=== PATIENT | male | born 1990 | race American Indian/Alaskan Native ===

== ENCOUNTER 2018-08-29 16:14 | Emergency (ER) | payer SELFPAY ==
--- NOTE | 2018-08-29 16:29 | ER ---
Nurse's Notes [facility] Name: Al Haq Age: 27 yrs Sex: Male : 1990 Arrival Date: 08/29/2018 Time: 16:17 Bed 24 Private MD: None, None Diagnosis: Irritant contact dermatitis due to detergents Presentation: 08/29 16:19 Presenting complaint: Patient states: "2 days ago I started having an allergic aj1 reaction, I've been treating it with Benadryl and hydrocortizone cream but its still spreading its on my hands, my arms, my chest. stomach area and all over my legs" Respirations are even and unlabored, denies shortness of breath. Transition of care: patient was not received from another setting of care. Onset: The symptoms/episode began/occurred 2 day(s) ago. Anaphylaxis evaluation, no signs or symptoms of anaphylaxis were noted. Onset of symptoms was August 27, 2018. Risk Assessment: Do you want to hurt yourself or someone else? Patient reports no desire to harm self or others. Initial Sepsis Screen: Does the patient meet any 2 criteria? No. Patient's initial sepsis screen is negative. Does the patient have a suspected source of infection? No. Patient's initial sepsis screen is negative. Care prior to arrival: None. 16:19 Method Of Arrival: Ambulatory aj 16:19 Acuity: AY 4 aj1 Triage Assessment: 16:21 General: Appears in no apparent distress. comfortable, Behavior is calm, cooperative, aj1 appropriate for age. Pain: Denies pain. Neuro: Level of Consciousness is awake, alert, obeys commands. Cardiovascular: Patient's skin is warm and dry. Respiratory: Airway is patent Respiratory effort is even, unlabored, Respiratory pattern is regular, symmetrical. Historical: - Allergies: 16:21 "metals"; aj1 - Home Meds: 16:21 None [Active]; aj1 - PMHx: 16:21 ADD/ADHD; ptsd; COPD; aj1 - PSHx: 16:21 None; aj1 - Immunization history:: Flu vaccine is not up to date. - Social history:: Smoking status: Patient uses tobacco products, smokes one pack cigarettes per day. - Ebola Screening: : Patient denies travel to an Ebola-affected area in the 21 days before illness onset. Screenin:42 Abuse screen: Denies threats or abuse. Denies injuries from another. Nutritional mg2 screening: No deficits noted. Tuberculosis screening: No symptoms or risk factors identified. Fall Risk None identified. Assessment: 16:40 General: Appears in no apparent distress. comfortable, Behavior is calm, cooperative. mg2 Pain: Denies pain. Neuro: Level of Consciousness is awake, alert, obeys commands, Oriented to person, place, time, situation. Cardiovascular: Capillary refill < 3 seconds Patient's skin is warm and dry. Respiratory: Airway is patent Respiratory effort is even, unlabored, Respiratory pattern is regular, symmetrical, Breath sounds are clear bilaterally. in right upper lobe, left upper lobe, right middle lobe, left lower lobe and right lower lobe. GI: No signs and/or symptoms were reported involving the gastrointestinal system. : No signs and/or symptoms were reported regarding the genitourinary system. EENT: No signs and/or symptoms were reported regarding the EENT system. Derm: Rash noted that is itchy, red, urticaria, on chest, abdomen, right arm and left arm. Musculoskeletal: Circulation, motion, and sensation intact. Capillary refill < 3 seconds. Vital Signs: 16:21 BP 139 / 86; Pulse 71; Resp 18; Temp 98.2; Pulse Ox 99% on R/A; Weight 98.43 kg (R); aj1 Height 5 ft. 11 in. (180.34 cm) (R); Pain 0/10; 16:21 Body Mass Index 30.27 (98.43 kg, 180.34 cm) aj1 ED Course: 16:17 Patient arrived in ED. ag5 16:17 None, None is Private Physician. ag5 16:21 Triage completed. aj1 16:21 Arm band placed on Patient placed in an exam room. aj1 16:22 Brit[facility] FNP-C [facility]. kb 16:22 Rhett Pedro MD is Attending Physician. kb 16:28 Marko Lorenzana, RAEGAN is Primary Nurse. mg2 16:42 No provider procedures requiring assistance completed. Patient did not have IV access mg2 during this emergency room visit. 16:43 Patient has correct armband on for positive identification. mg2 Administered Medications: 16:40 Drug: predniSONE 40 mg Route: PO; mg2 16:40 Follow up: Response: No adverse reaction; Medication administered at discharge. mg2 16:40 Drug: Pepcid 20 mg Route: PO; mg2 16:40 Follow up: Response: No adverse reaction; Medication administered at discharge. mg2 Outcome: 16:29 Discharge ordered by . elton 16:43 Discharged to home ambulatory, with family. mg2 16:43 Condition: stable 16:43 Discharge instructions given to patient, family, Instructed on discharge instructions, follow up and referral plans. medication usage, Demonstrated understanding of instructions, follow-up care, medications, Prescriptions given X 2. 16:44 Patient left the ED. mg2 Signatures: Britney Peña, RAILROAD SIGNAL TECHNICIAN-C RAILROAD SIGNAL TECHNICIAN-CkJenniffer Pierre RN RN aj1 Marko Lorenzana RN RN mg2 Nitin Fan5
--- NOTE | 2018-08-29 16:30 | EDPHYS ---
Physician Documentation [facility] Name: Al Haq Age: 27 yrs Sex: Male : 1990 Arrival Date: 08/29/2018 Time: 16:17 Bed 24 Private MD: None, None ED Physician Rhett Pedro HPI: 08/29 16:26 This 27 yrs old Male presents to ER via Ambulatory with complaints of Allergic Reaction.kb 16:26 The patient presents with itching, rash. Onset: The symptoms/episode began/occurred 2 kb week(s) ago. Associated signs and symptoms: Pertinent positives: rash. Possible causes: new laundry detergent . At home the patient or guardian has treated the symptoms with Benadryl. Severity of symptoms: At their worst the symptoms were moderate in the emergency department the symptoms are unchanged. The patient has not experienced similar symptoms in the past. The patient has not recently seen a physician. Pt reports he used a new laundry detergent and broke out into a rash. Has been taking benadryl with no relief. . Historical: - Allergies: 16:21 "metals"; aj1 - Home Meds: 16:21 None [Active]; aj1 - PMHx: 16:21 ADD/ADHD; ptsd; COPD; aj1 - PSHx: 16:21 None; aj1 - Immunization history:: Flu vaccine is not up to date. - Social history:: Smoking status: Patient uses tobacco products, smokes one pack cigarettes per day. - Ebola Screening: : Patient denies travel to an Ebola-affected area in the 21 days before illness onset. ROS: 16:26 Constitutional: Negative for fever, chills, and weight loss, Cardiovascular: Negative kb for chest pain, palpitations, and edema, Respiratory: Negative for shortness of breath, cough, wheezing, and pleuritic chest pain, Abdomen/GI: Negative for abdominal pain, nausea, vomiting, diarrhea, and constipation, MS/Extremity: Negative for injury and deformity, Neuro: Negative for headache, weakness, numbness, tingling, and seizure. 16:26 Skin: Positive for rash, diffusely. Exam: 16:26 Constitutional: This is a well developed, well nourished patient who is awake, alert, kb and in no acute distress. Head/Face: Normocephalic, atraumatic. Chest/axilla: Normal chest wall appearance and motion. Nontender with no deformity. No lesions are appreciated. Cardiovascular: Regular rate and rhythm with a normal S1 and S2. No gallops, murmurs, or rubs. Normal PMI, no JVD. No pulse deficits. Respiratory: Lungs have equal breath sounds bilaterally, clear to auscultation and percussion. No rales, rhonchi or wheezes noted. No increased work of breathing, no retractions or nasal flaring. Abdomen/GI: Soft, non-tender, with normal bowel sounds. No distension or tympany. No guarding or rebound. No evidence of tenderness throughout. MS/ Extremity: Pulses equal, no cyanosis. Neurovascular intact. Full, normal range of motion. Neuro: Awake and alert, GCS 15, oriented to person, place, time, and situation. Cranial nerves II-XII grossly intact. Motor strength 5/5 in all extremities. Sensory grossly intact. Cerebellar exam normal. Normal gait. 16:26 Skin: consistent with contact dermatitis, and is diffusely located. Vital Signs: 16:21 BP 139 / 86; Pulse 71; Resp 18; Temp 98.2; Pulse Ox 99% on R/A; Weight 98.43 kg (R); aj1 Height 5 ft. 11 in. (180.34 cm) (R); Pain 0/10; 16:21 Body Mass Index 30.27 (98.43 kg, 180.34 cm) aj1 MDM: 16:22 Patient medically screened. kb 16:26 Data reviewed: vital signs, nurses notes. Data interpreted: Pulse oximetry: on room air kb is 99 %. Interpretation: normal. Counseling: I had a detailed discussion with the patient and/or guardian regarding: the historical points, exam findings, and any diagnostic results supporting the discharge/admit diagnosis, the need for outpatient follow up, a family practitioner, to return to the emergency department if symptoms worsen or persist or if there are any questions or concerns that arise at home. Administered Medications: 16:40 Drug: predniSONE 40 mg Route: PO; mg2 16:40 Follow up: Response: No adverse reaction; Medication administered at discharge. mg2 16:40 Drug: Pepcid 20 mg Route: PO; mg2 16:40 Follow up: Response: No adverse reaction; Medication administered at discharge. mg2 Disposition: 17:27 Co-signature as Attending Physician, Rhett Pedro MD. rn Disposition: 08/29/18 16:29 Discharged to Home. Impression: Irritant contact dermatitis due to detergents. - Condition is Stable. - Discharge Instructions: Contact Dermatitis, [id number]. - Prescriptions for Pepcid 20 mg Oral Tablet - take 1 tablet by ORAL route every 12 hours for 5 days; 10 tablet. Prednisone 20 mg Oral Tablet - take 1 tablet by ORAL route once daily for 5 days; 5 tablet. - Medication Reconciliation Form, Thank You Letter, Antibiotic Education, Prescription Opioid Use form. - Follow up: Emergency Department; When: As needed; Reason: Worsening of condition. Follow up: Private Physician; When: 2 - 3 days; Reason: Recheck today's complaints, Continuance of care, Re-evaluation by your physician. Signatures: Britney Peña, INVESTMENT ANALYST-C INVESTMENT ANALYST-Ckb Jenniffer Dickens RN RN aj1 Rhett Pedro MD MD rn Gardose, Michele, RN RN mg2 Corrections: (The following items were deleted from the chart) 16:44 16:29 08/29/2018 16:29 Discharged to Home. Impression: Irritant contact dermatitis due mg2 to detergents. Condition is Stable. Forms are Medication Reconciliation Form, Thank You Letter, Antibiotic Education, Prescription Opioid Use. Follow up: Emergency Department; When: As needed; Reason: Worsening of condition. Follow up: Private Physician; When: 2 - 3 days; Reason: Recheck today's complaints, Continuance of care, Re-evaluation by your physician. kb
[2018-08-29] MEDS ORDERED: predniSONE 20 MG TAB ONE (16:45)
[2018-08-29] MEDS ORDERED: FAMOTIDINE 20 MG TAB ONE (16:46)
== END 2018-08-29 16:44 | disposition home or self-care (01) ==
LOC: ER 16:14
DX: L24.0 Irritant contact dermatitis due to detergents (principal); F90.9 Attention-deficit hyperactivity disorder, unspecified type; J44.9 Chronic obstructive pulmonary disease, unspecified; F17.210 Nicotine dependence, cigarettes, uncomplicated
CPT/HCPCS: 99283; J7512

== ENCOUNTER 2018-09-18 17:08 | Emergency (ER) | payer SELFPAY ==
[2018-09-18] MEDS ORDERED: TETANUS & DIPHTHERIA TOX,ADULT 0.5 ML VIAL ONE (18:02)
[2018-09-18] MEDS ORDERED: IBUPROFEN 400 MG TAB ONE (18:08)
[2018-09-18] MEDS ORDERED: IBUPROFEN 200 MG TAB PO ONE (18:08)
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
== END 2018-09-18 19:05 | disposition home or self-care (01) ==
LOC: ER 17:08
DX: S20.211A Contusion of right front wall of thorax, initial encounter (principal); Y04.2XXA Assault by strike against or bumped into by another person, initial encounter; Y93.9 Activity, unspecified; Y92.9 Unspecified place or not applicable; Z23 Encounter for immunization; F17.210 Nicotine dependence, cigarettes, uncomplicated
CPT/HCPCS: 71250; 74176; 90471; 90714; 99284